=== PATIENT | female | born 1965 | race African-American/Black ===

== ENCOUNTER → 2017-07-16 | Outpatient (CLI) | payer BC ==
[~2017-07-16] MED LIST: ACCUPRIL40 MG; ACETAMINOPHEN325 MG PO; ALDACTONE25 MG PO; ALEVE; ANIMAL SHAPES1 EAC2; ASPIRIN EC81 M1 PO; CENTRUM SILVER1 EAC2 PO; CINNAMON BARK1 GM; CINNAMON BARK1 GM PO; COREG12.5 M1 PO; FLONASE 0.05% N16 GM; GLUCOTROL PO; HAIR, SKIN & N1 EAC2 PO; HYDROCHLOROTHIA25 MG PO; IBUPROFEN800 MG PO; LASIX20 MG PO; LEVAQUIN250 MG PO; MEDROL DOSEPAK4 MG PO; MEDROL PO; METFORMIN HCL1000 M1 PO; NEURONTIN300 MG PO; NORVASC PO; PERCOCET5/325 PO; POTASSIUM CHLO10 ME1 PO; PRILOSEC PO; ROBAXIN500 MG PO; SIMVASTATIN20 MG PO; VITAMIN D31000 UNIT PO; VOLTAREN50 MG PO; ZANTAC150 MG PO; ZESTORETIC 20/21 TAB PO; ZYRTEC10 M1 PO
== END | disposition home or self-care (01) ==
LOC: CECH 07-11 13:45 → CLAB 10:28 → CECH 10:28
DX: I50.9 Heart failure, unspecified (principal); I36.1 Nonrheumatic tricuspid (valve) insufficiency
CPT/HCPCS: 93306